=== PATIENT | female | born 1995 | race Caucasian/White ===

== ENCOUNTER 2023-05-23 12:10 | Outpatient (CLI) | payer OTHER | END 2023-05-23 12:11 | disposition home or self-care (01) | LOC: CSHULT 12:10 | PROVIDERS: ATTEND Student in an Organized Health Care Education/Training Program | DX: N93.9 Abnormal uterine and vaginal bleeding, unspecified (principal); Z97.5 Presence of (intrauterine) contraceptive device | CPT/HCPCS: 76830 ==